=== PATIENT | female | born 1990 | race Caucasian/White ===

== ENCOUNTER 2020-01-28 21:14 | Emergency (ER) | payer BC ==
[~2020-01-28] VITALS: Ht 172.7 cm; Wt 63.6 kg
[2020-01-28 22:11] LABS: BASO # 0.1 x10^3/uL (0.0-0.2); BASO % 1 % (0-3); EOS # 0.1 x10^3/uL (0.0-0.7); EOS % 1 % (0-3); HEMATOCRIT 36.5 % (36.0-47.0); HEMOGLOBIN 12.6 g/dL (12.0-15.5); LYMPH # 2.6 x10^3/uL (1.0-4.8); LYMPH % 25 % (24-48); MEAN CORPUSCULAR HEMOGLOBIN 32 pg (25-35); MEAN CORPUSCULAR HGB CONC 35 g/dL (31-37); MEAN CORPUSCULAR VOLUME 91 fL (79-100); MONO # 0.8 x10^3/uL (0.0-1.1); MONO % 8 % (0-9); NEUT # 6.6 x10^3/uL (1.8-7.7); NEUT % 65 % (31-73); PLATELET COUNT 223 x10^3/uL (140-400); RED CELL DISTRIBUTION WIDTH 13.5 % (11.5-14.5); WHITE BLOOD COUNT 10.1 x10^3/uL (4.0-11.0)
[2020-01-28] MEDS ORDERED: IV NORMAL SALINE 1000ML BAG 1,000 ML IV ONE (22:15)
[2020-01-28] MEDS ORDERED: METOCLOPRAMIDE HCL 10 MG/2 ML VIAL. IVP ONE (22:15)
[2020-01-28] MEDS ORDERED: DEXAMETHASONE SOD PHOS 4 MG/ML VIAL IVP ONE (22:15)
[2020-01-28] MEDS ORDERED: KETOROLAC 15 MG/ML VIAL. IVP ONE (22:15)
[2020-01-28] MEDS ORDERED: diphenhydrAMINE 50 MG/ML VIAL IVP ONE (22:15)
[2020-01-28 22:20] LABS: PROTHROMBIN TIME PATIENT 13.3 SEC (11.7-14.0)
[2020-01-28 22:22] LABS: CALCIUM 8.8 mg/dL (8.5-10.1); CREATININE 0.9 mg/dL (0.6-1.0); GFR 73.5; MAGNESIUM 1.7 mg/dL (1.8-2.4); POTASSIUM 3.4 mmol/L (3.5-5.1)
[2020-01-28 22:24] LABS: PREG TEST PT QUAL NEGATIVE (NEG)
[2020-01-28] MEDS ORDERED: CONTRAST GIVEN. MC PRN (22:30)
[2020-01-28] MEDS ORDERED: IOHEXOL 350 MG/ML 100 ML VIAL. IV ONE (22:30)
--- NOTE | 2020-01-28 22:36 | PHYS DOC ---
Past Medical History Past Medical History: Migraines, Seizure, Other Additional Past Medical Histor: Congenital brain aneurysm at 15 years old Past Surgical History: Cholecystectomy Additional Past Surgical Histo: Brain aneurysm clip Smoking Status: Never Smoker Alcohol Use: None Drug Use: None General Adult EDM: Chief Complaint: HEADACHE HPI: HPI: Patient is a 29 year old female with past medical history of congenital brain aneurysm at 15 years old requiring aneurysmal clip and chronic migraine headaches presents with report of 3-day history of worsening headache. Reports has had similar type of symptoms in the past that were attributed to her migraine headaches. Reports she has not had any recent imaging of her brain to reevaluate the aneurysm (maybe 2-3 years ago). Denies trauma. Denies fever or chills. Denies neck pain. Denies nausea or vomiting. Denies . Reports last menstrual period was approximately 3 weeks ago. Review of Systems: Review of Systems: Constitutional: Denies fever or chills Eyes: Denies redness or eye pain HENT: Denies nasal congestion or sore throat Respiratory: Denies cough or shortness of breath Cardiovascular: Denies chest pain or palpitations GI: Denies abdominal pain, nausea, or vomiting : Denies dysuria or hematuria Musculoskeletal: Denies back pain or joint pain Integument: Denies rash or skin lesions Neurologic: Reports headache; denies focal weakness or sensory changes Complete systems were reviewed and found to be within normal limits, except as documented in this note. Current Medications: Current Medications Medications (Trade) Dose Ordered Sig/Farhana Start Time Stop Time Status Last Admin Dose Admin Dexamethasone Sodium Phosphate (Decadron) 10 mg 1X ONCE 01/28/20 22:15 01/28/20 22:16 DC Diphenhydramine HCl (Benadryl) 25 mg 1X ONCE 01/28/20 22:15 01/28/20 22:16 DC Info (CONTRAST GIVEN -- Rx MONITORING) 1 each PRN DAILY PRN 01/28/20 22:30 01/30/20 22:29 Iohexol (Omnipaque 350 Mg/ml) 75 ml 1X ONCE 01/28/20 22:30 01/28/20 22:31 Ketorolac Tromethamine (Toradol 15mg Vial) 15 mg 1X ONCE 01/28/20 22:15 01/28/20 22:16 DC Metoclopramide HCl (Reglan Vial) 10 mg 1X ONCE 01/28/20 22:15 01/28/20 22:16 DC Sodium Chloride 1,000 ml @ 1,000 mls/hr 1X ONCE 01/28/20 22:15 01/28/20 23:14 Allergies: Allergies: Allergies Coded Allergies Type Severity Reaction Last Updated Verified erythromycin base Allergy Unknown 01/28/20 Yes Physical Exam: PE: Constitutional: Well developed, well nourished, no acute distress, non-toxic appearance HENT: Normocephalic, atraumatic Eyes: PERRL, EOMI, conjunctiva normal, no discharge, no nystagmus Neck: Normal range of motion, no midline tenderness, supple Lungs & Thorax: No respiratory distress, equal chest rise and fall Abdomen: Soft, no tenderness Skin: Warm, dry, no erythema, no rash Extremities: No tenderness, ROM intact, no edema Neurologic: Alert and oriented X 3, baseline weakness to right hand and right leg, reports some decreased sensation to right leg which is different than normal, no focal deficits noted Psychologic: Affect normal, judgment normal Current Patient Data: Labs: Laboratory Tests Test 01/28/20 21:55 White Blood Count 10.1 x10^3/uL (4.0-11.0) Red Blood Count 4.00 x10^6/uL (3.50-5.40) Hemoglobin 12.6 g/dL (12.0-15.5) Hematocrit 36.5 % (36.0-47.0) Mean Corpuscular Volume 91 fL (79-100) Mean Corpuscular Hemoglobin 32 pg (25-35) Mean Corpuscular Hemoglobin Concent 35 g/dL (31-37) Red Cell Distribution Width 13.5 % (11.5-14.5) Platelet Count 223 x10^3/uL (140-400) Neutrophils (%) (Auto) 65 % (31-73) Lymphocytes (%) (Auto) 25 % (24-48) Monocytes (%) (Auto) 8 % (0-9) Eosinophils (%) (Auto) 1 % (0-3) Basophils (%) (Auto) 1 % (0-3) Neutrophils # (Auto) 6.6 x10^3/uL (1.8-7.7) Lymphocytes # (Auto) 2.6 x10^3/uL (1.0-4.8) Monocytes # (Auto) 0.8 x10^3/uL (0.0-1.1) Eosinophils # (Auto) 0.1 x10^3/uL (0.0-0.7) Basophils # (Auto) 0.1 x10^3/uL (0.0-0.2) Prothrombin Time 13.3 SEC (11.7-14.0) Prothrombin Time INR 1.1 (0.8-1.1) Activated Partial Thromboplast Time 34 SEC (24-38) Sodium Level 138 mmol/L (136-145) Potassium Level 3.4 mmol/L (3.5-5.1) L Chloride Level 102 mmol/L (98-107) Carbon Dioxide Level 25 mmol/L (21-32) Anion Gap 11 (6-14) Blood Urea Nitrogen 9 mg/dL (7-20) Creatinine 0.9 mg/dL (0.6-1.0) Estimated GFR (Cockcroft-Gault) 73.5 Glucose Level 102 mg/dL (70-99) H Calcium Level 8.8 mg/dL (8.5-10.1) Magnesium Level 1.7 mg/dL (1.8-2.4) L Serum Test, Qualitative Negative (NEG) Laboratory Tests 01/28/20 21:55 Laboratory Tests 01/28/20 21:55 Vital Signs: Vital Signs Date Time Temp Pulse Resp B/P (MAP) Pulse Ox O2 Delivery O2 Flow Rate FiO2 01/28/20 21:30 98.3 92 18 127/82 (97) 97 Room Air 98.3 EKG: EKG: [] Radiology/Procedures: Radiology/Procedures: PROCEDURE: CT ANGIOGRAPHY HEAD AND NECK EXAM: CT Angiogram of the Head and Neck INDICATION: Reason: headache, hx of congenital aneurysm / Spl. Instructions: INJ 75ML OMNI 350 / History: TECHNIQUE: CT images were obtained through the head per standard CTA protocol. Multiplanar and 3D reformatted images were generated from the CT dataset on an independent workstation. All CT scans performed at this facility utilize dose optimization techniques as appropriate to the exam, including the following: Automated exposure control and adjustment of the mA and/or KV according to patient size (this includes techniques or standardized protocols for targeted exams where dose is indication/reason for exam). IV CONTRAST: Administered COMPARISON: None FINDINGS: CTA HEAD: No high-grade large vessel stenosis, proximal or branch vessel occlusion, aneurysm, or vascular malformation. ANTERIOR CIRCULATION: Both anterior cerebral arteries arise from the left ICA as a normal variant. The left M1 segment MCA is narrowed and subsequently occluded by an aneurysm clip. Distal reconstitution via a left carotid to M2 segment MCA bypass graft is evident. ANTERIOR COMMUNICATING ARTERY: Patent. POSTERIOR COMMUNICATING ARTERIES: Present bilaterally and patent. POSTERIOR CIRCULATION: Vertebral and basilar arteries are widely patent. Bilateral posterior inferior cerebellar arteries (PICAs), anterior inferior cerebellar arteries (AICAs), and superior cerebellar arteries (SCAs) are visualized and patent. OTHER: No abnormal brain parenchymal enhancement. The paranasal sinuses, mastoid air cells, and tympanic cavities are clear. There is some encephalomalacia in the inferior left frontal lobe. Mild ex vacuo dilation of the left lateral ventricle is also present. NECK CTA: AORTA: 2 vessel configuration of arch. No dissection or acute aortic injury. No hemodynamically significant great vessel origin stenosis. RIGHT CAROTID: Common and internal carotid arteries are widely patent, without evidence of flow limiting stenosis or dissection. LEFT CAROTID: Common and internal carotid arteries are widely patent, without evidence of flow limiting stenosis or dissection. However, there is arterial bypass graft from the left carotid bulb that anastomosis with the left MCA via a right squamous temporal craniotomy. VERTEBRAL ARTERIES: Codominant. No evidence of dissection or flow limiting stenosis. SUBCLAVIAN ARTERIES:Subclavian arteries are patent without stenosis. SOFT TISSUES: Soft tissues are unremarkable. Lung apices are clear. There is an implanted medical case manager in the left chest with electrode courses through the left subclavian vein down the SVC. It could represent a pacemaker but is only partially imaged. Where applicable, evaluation of ICA stenosis was performed using NASCET criteria, where the site of greatest stenosis is compared to the diameter of the ICA distal to the carotid bulb. IMPRESSION: Postop changes of left carotid arterial bypass from bulb to left M2 division, status post left M1 aneurysm clipping. No recurrent aneurysm or evidence of acute intracranial or cervical arterial vascular pathology. FOR INTERNAL CODING PURPOSES Critical result: Findings discussed with GRACE NATHAN at 01/28/2020 11:32 PM. RESULT CODE: (C) Electronically signed by: Kat Montelongo MD (01/29/2020 12:18 AM) [facility] [place] Course & Med Decision Making: Course & Med Decision Making Pertinent Labs and Imaging studies reviewed. (See chart for details) Patient presents with report of chronic migraines and history of prior congenital aneurysm that was repaired with a aneurysmal clip at age 15 presents with report of worsening headache then prior. Patient appears neurologically at baseline however some slight decrease sensation noted to her right anterior leg in comparison to left. Denies trauma. Reports has not had any imaging of her brain for the past 2 to 3 years. Symptomatic treatment provided. IV fluid hydration given. Labs obtained and posted to chart. CTA head/neck without acute process. Patient stable for discharge with outpatient follow-up with PCP/neurology. Neurology referral provided. Discussed findings and plan with patient, who acknowledges understanding and agreement. Darrion Disclaimer: Darrion Disclaimer: This electronic medical record was generated, in whole or in part, using a voice recognition dictation system. Departure Departure Impression: Primary Impression: Headache Qualified Codes: R51 - Headache Disposition: 01 HOME, SELF-CARE Condition: STABLE Referrals: NON,STAFF (PCP) Patient Instructions: Headache, FAQs Scripts Butalb/Acetaminophen/Caffeine ([id number] [id number]) 1 Each Tablet 1 EACH PO Q6HRS PRN for HEADACHE, #10 TAB Prov: GRACE NATHAN DO 01/28/20 Justicifation of Admission Dx: Justifications for Admission: Justification of Admission Dx: N/A GRACE NATHAN DO Jan 28, 2020 22:36
[2020-01-28] MEDS ORDERED: BUTA1TAB23 PO (23:43)
[2020-01-28] MEDS ORDERED: BUTALB/APAP/CAFEIN 50/325/40MG TABLET. PO ONE (23:55)
[2020-01-29 00:08] VITALS: BP 112/65
--- NOTE | 2020-01-29 00:22 | RAD ---
EXAM: CT Angiogram of the Head and Neck INDICATION: Reason: headache, hx of congenital aneurysm / Spl. Instructions: INJ 75ML OMNI 350 / History: TECHNIQUE: CT images were obtained through the head per standard CTA protocol. Multiplanar and 3D reformatted images were generated from the CT dataset on an independent workstation. All CT scans performed at this facility utilize dose optimization techniques as appropriate to the exam, including the following: Automated exposure control and adjustment of the mA and/or KV according to patient size (this includes techniques or standardized protocols for targeted exams where dose is indication/reason for exam). IV CONTRAST: Administered COMPARISON: None FINDINGS: CTA HEAD: No high-grade large vessel stenosis, proximal or branch vessel occlusion, aneurysm, or vascular malformation. ANTERIOR CIRCULATION: Both anterior cerebral arteries arise from the left ICA as a normal variant. The left M1 segment MCA is narrowed and subsequently occluded by an aneurysm clip. Distal reconstitution via a left carotid to M2 segment MCA bypass graft is evident. ANTERIOR COMMUNICATING ARTERY: Patent. POSTERIOR COMMUNICATING ARTERIES: Present bilaterally and patent. POSTERIOR CIRCULATION: Vertebral and basilar arteries are widely patent. Bilateral posterior inferior cerebellar arteries (PICAs), anterior inferior cerebellar arteries (AICAs), and superior cerebellar arteries (SCAs) are visualized and patent. OTHER: No abnormal brain parenchymal enhancement. The paranasal sinuses, mastoid air cells, and tympanic cavities are clear. There is some encephalomalacia in the inferior left frontal lobe. Mild ex vacuo dilation of the left lateral ventricle is also present. NECK CTA: AORTA: 2 vessel configuration of arch. No dissection or acute aortic injury. No hemodynamically significant great vessel origin stenosis. RIGHT CAROTID: Common and internal carotid arteries are widely patent, without evidence of flow limiting stenosis or dissection. LEFT CAROTID: Common and internal carotid arteries are widely patent, without evidence of flow limiting stenosis or dissection. However, there is arterial bypass graft from the left carotid bulb that anastomosis with the left MCA via a right squamous temporal craniotomy. VERTEBRAL ARTERIES: Codominant. No evidence of dissection or flow limiting stenosis. SUBCLAVIAN ARTERIES:Subclavian arteries are patent without stenosis. SOFT TISSUES: Soft tissues are unremarkable. Lung apices are clear. There is an implanted medical parasitologist in the left chest with electrode courses through the left subclavian vein down the SVC. It could represent a pacemaker but is only partially imaged. Where applicable, evaluation of ICA stenosis was performed using NASCET criteria, where the site of greatest stenosis is compared to the diameter of the ICA distal to the carotid bulb. IMPRESSION: Postop changes of left carotid arterial bypass from bulb to left M2 division, status post left M1 aneurysm clipping. No recurrent aneurysm or evidence of acute intracranial or cervical arterial vascular pathology. FOR INTERNAL CODING PURPOSES Critical result: Findings discussed with GRACE NATHAN at 01/28/2020 11:32 PM. RESULT CODE: (C) Electronically signed by: Kat Montelongo MD (01/29/2020 12:18 AM) [facility] [place]
== END 2020-01-29 00:10 | disposition home or self-care (01) ==
LOC: ER 21:14
DX: G43.909 Migraine, unspecified, not intractable, without status migrainosus (principal); Z86.69 Personal history of other diseases of the nervous system and sense organs; Z88.1 Allergy status to other antibiotic agents
CPT/HCPCS: 36415; 70496; 70498; 80048; 83735; 84703; 85025; 85610; 85730; 96374; 96375; 99285; J1100; J1200; J1885; J2765; J7030; Q9967